=== PATIENT | male | born 1985 | race Two or more races ===

== ENCOUNTER 2017-05-31 17:58 | Emergency (ER) | payer MEDICAID ==
[~2017-05-31] VITALS: Ht 198.1 cm; Wt 106.1 kg
--- NOTE | 2017-05-31 19:15 | NUR ---
Received report from BETTY Patiño. Assumed care of pt at this time. Pt resting in position of comfort for self. No complaints at this time.
--- NOTE | 2017-05-31 19:46 | NUR ---
Pt stable for discharge per MD. Pt given ACI. Pt verbalized understanding of dc instructions. Pt ambulated out of er with steady gait
[2017-05-31 19:47] VITALS: BP 120/72
== END 2017-05-31 19:48 | disposition home or self-care (01) ==
LOC: ER 17:58
DX: R76.11 Nonspecific reaction to tuberculin skin test without active tuberculosis (principal)
CPT/HCPCS: 71020; 99284; A4663